=== PATIENT | male | born 2005 | race Caucasian/White ===

== ENCOUNTER 2024-01-03 06:51 | Emergency (ER) | payer OTHER, SELFPAY ==
[2024-01-03 06:59] VITALS: BP 129/71; PULSE 61; TEMP 36.7; O2SAT 97; BMI 24.4
[2024-01-03] MEDS: IPRATROPIUM/ALBUTEROL SULFATE 3 ML AMPUL.NEB IH (07:36)
[2024-01-03 07:37] VITALS: PULSE 72; O2SAT 97
--- NOTE | 2024-01-03 07:50 | ED.GENADUL1 ---
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, he is denying any chest pain nausea vomiting or any other complaints Mentioned that he have cough sometimes when he gets home and usually is associated shortness of breath there was no fever and sometimes the cough is productive The patient mentioned that he knows that there is some mold at work and may be that causing him to have cough although the cough is happening whenever he is getting home not at work The patient denies any fever chills abdominal pain Patient complaining of bilateral knee pain because of standing up for long time at work Related Data Previous Rx's ?Medication ?Instructions ?Recorded albuterol sulfate 90 mcg/actuation 1 inh inhalation Q6H PRN shortness 01/03/24 breath activated powder inhaler of breath #1 ea Allergies Allergy/AdvReac Type Severity Reaction Status Date / Time No Known Drug Allergies Allergy Verified 01/03/24 06:59 Opioid HPI Opioid Management Most Recent Opioid Data: No Data to Display Review of Systems ROS Status of ROS 10 or more systems reviewed and unremarkable except as noted in history and below Exam Narrative Exam Narrative: Nurses notes and vital signs reviewed and patient is not hypoxic. General: Well-appearing and in no apparent distress. Skin: Warm, dry, no pallor noted. No rash. Head: Normocephalic, atraumatic. Neck: Supple, non-tender. Eye: Pupils are equal, round and EOMI. No scleral icterus. Ears, Nose, Mouth, and Throat: TM are clear, no nasal mucosal hypertrophy. Oral mucosa is moist, no posterior oropharynx erythema, uvula is mid-line Cardiovascular: Regular Rate and Rhythm without murmur, gallop or rub. Respiratory: No accessory muscle use or respiratory distress. Lungs are clear distant breathing sound bilaterally,, no wheezing, rales or rhonchi Chest Wall: no tenderness Back: No midline thoracic or lumbar vertebral tenderness. No CVA tenderness Musculoskeletal: normal ROM, no calf or popliteal tenderness, no lower extremity edema/swelling GI: Abdomen is soft, non-distended. Normal bowel sounds. No masses appreciated. No tenderness to palpation. No rebound, guarding, or rigidity noted. Neurological: A&O x4. No cranial nerve dysfunction observed. No truncal ataxia. Moves all extremities. Sensation intact. Psychiatric: Cooperative and interactive. Normal mood and affect. Constitutional Vital Signs, click to edit/add: Last Vital Signs Temp 98.0 F 01/03/24 06:59 Pulse 72 01/03/24 07:37 Resp 16 01/03/24 07:37 BP 129/71 01/03/24 06:59 Pulse Ox 97 01/03/24 07:37 O2 Del Method Room Air 01/03/24 07:37 Course Vital Signs Vital signs: Vital Signs Temperature 98.0 F 01/03/24 06:59 Pulse Rate 61 01/03/24 06:59 Respiratory Rate 18 01/03/24 06:59 Blood Pressure 129/71 01/03/24 06:59 Pulse Oximetry 97 01/03/24 06:59 Oxygen Delivery Method Room Air 01/03/24 06:59 Temperature 98.0 F 01/03/24 06:59 Pulse Rate 72 01/03/24 07:37 Respiratory Rate 16 01/03/24 07:37 Blood Pressure 129/71 01/03/24 06:59 Pulse Oximetry 97 01/03/24 07:37 Oxygen Delivery Method Room Air 01/03/24 07:37 Medical Decision Making MDM Narrative Medical decision making narrative: The patient complained of coughing when exposed to mold could be secondary to reactive airway although the patient's symptoms are nonspecific and he is not a good historian I did provide him with a breathing treatment after which she was feeling much better I provided him with the albuterol as a reactive airway management treatment and instructed him to follow-up with a primary care that he was assigned The patient also mentioned that he have difficulty sleeping I did explain to him sleep hygiene and the fact that he can try [id number] melatonin The patient initially was advised that we can take an x-ray but he was worried about the cost of that and due to the fact that he does not have any pneumonia symptoms of fever chills or difficulty breathing at the moment I did tell him that we can avoid that by just supportive care because of hyperactive bronchitis only The patient is to follow up with primary care physician in next 2-3 days or to return to the emergency department should any of the signs or symptoms worsen or new symptoms develop. The patient agrees with the following Diagnosis and Treatment plan and the patient will be discharged home. Discharge Plan Discharge Stand Alone Forms: Work/School Release, Portal Instructions Chief Complaint: Shortness of Breath/Dyspnea Clinical Impression: Mild reactive airways disease Qualifiers: Asthma persistence: intermittent Asthma complication type: uncomplicated Qualified Code(s): J45.20 - Mild intermittent asthma, uncomplicated Patient Disposition: Home, Self-Care Time of Disposition Decision: 07:27 Condition: Good Prescriptions / Home Meds: New albuterol sulfate 90 mcg/actuation aerosol powdr breath activated 1 inh inhalation Q6H PRN (Reason: shortness of breath) Qty: 1 0RF Print Language: Indonesian Instructions: Reactive Airways Disease (ED), Insomnia (ED) Referrals: Physician,Non-Staff, MD [Primary Care Provider] - 1 week
== END 2024-01-03 07:58 | disposition home or self-care (01) ==
PROVIDERS: Emergency Provider Emergency Medicine
DX: J45.20 Mild intermittent asthma, uncomplicated (principal)
CPT/HCPCS: 94640; 99283

== ENCOUNTER 2025-01-17 03:20 | Emergency (ER) | payer OTHER, SELFPAY ==
--- OUTSIDE RECORDS SUMMARY | 2025-01-17 05:31 | XMS_ITS | Clinical Summary ---
Author Organization [facility] Healthcare Address [address] [place] [address] Care Team Providers Care Stripper Preliminary Name Role Phone Unallocated, Noms Provider Primary Care Provi narcisa Social History Tobacco Use Types Packs/Day Years Used Date Smoking Tobacco: Never Assessed Sex and Gender Information Value Date Recorded Sex Assigned at Not on file Legal Sex Male 9:59 AM EST Gender Identity Not on file Sexual Orientation Not on file Plan of Treatment Health Maintenance Due Date Last Done Comments Influenza Vaccine (#1) 2025 Care Teams Stripper Preliminary Relationship Specialty Start Date End Date Unallocated, Noms ProviderMD [facility] [address] [place] [id number] PCP - General Family Medicine 06/09/23
--- OUTSIDE RECORDS SUMMARY | 2025-01-17 05:31 | XMS_ITS | CCD ---
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 [facility] Care Team Providers Care General Repairer Name Role Phone Unallocated, Noms Provider Primary Care Provider Problems Problem Classification Problem Date Documented Da te Episodic/Chronic Administrative/social admission (2 sources) Patient encounter status; Translations: [Encounter for pre-employment examination] 06-15-2023 Episodic Encounters Encounter Date Encounter Type Care Provider Facility Start: 06-09-2023 End: 06-09-2023 ambulatory Not Available Start: 06-09-2023 End: 06-09-2023 Patient encounter procedure Vincent Vincent Kaylawallace DO Work Phone: [facility] Comment on above: Encounter for pre-em ployment drug testing (Primary Dx) Social History Date Type Detail Facility Tobacco smoking stat [facility] Tobacco smoking consumption unknown [facility] Healthcare Start: 2003 Sex Assigned At Not on file [facility] Gender identity Not on file [facility] History of Present illness Narrative 06-09-2023 Jerel Willis MA - 06/09/2023 9:55 AM EST Note Date & Type Note Facility 06-09-2023 History of Presen t illness Narrative Pt presents today for a pre-employment drug screen, BAT, and Physical Exam for [place]face. Pt verified by photo ID . documented in this encounter [facility] Evaluation note Note Date & Type Note Facility Evaluation note Diagnosis Encounter for pre-employment drug testing- Primary documented in this encounter [facility] Summary Purpose Family History No Family History Records Found Advance Directives No Advanced Directives Records Found Additional Source Comments (unrecognized sect ion and content) No Status Records Found INFORMATION SOURCE (unrecogn ized section and content) DATE CREATED AUTHOR 06/10/2023 [facility] Care Teams (unrecognized sec tion and content) General Repairer Relationship Specialty Start Date End Date Unallocated, Noms Provider [address] [place] [id number] PCP - General Family Medicine 06/09/23 FOR RECORDS PERTAINING TO PATIENTS WHO ARE OR HAVE BEEN ENROLLED IN A CHEMICAL DEPENDENCY/SUBSTANCEABUSE PROGRAM, SOME INFORMATION MAY BE OMITTED. This clinical summary was aggregated from multiple sources. Caution should be exercised in using it in the provision of clinical care. This summary normalizes information from multiple sources, and as a consequence, information in this document may materially change the coding, format and clinical context of patient data. In addition, data may be omitted in some cases. CLINICAL DECISIONS SHOULD BE BASED ON THE PRIMARY CLINICAL RECORDS. [facility] [employer] provides no warranty or guarantee of the accuracy or completeness of information in this document.
[2025-01-17 05:41] LABS: Hematocrit 41.0 % (42.0-54.0); Hemoglobin 14.3 g/dL (14.0-18.0); Immature Granulocytes Abs Auto 0.04 10^3/uL (0.00-0.03); Immature Granulocytes Pct Auto 0.4 % (0.0-0.5); Lymphocytes Absolute Auto 3.3 10^3/uL (1.2-3.8); Mean Corpuscular HGB Conc 34.9 g/dL (29.9-35.2); Mean Corpuscular Hemoglobin 31.1 pg (25.9-34.0); Mean Corpuscular Volume 89.1 fL (80.0-94.0); Platelet Count 245 10^3/uL (150-450); Red Blood Count 4.60 10^6/uL (4.70-6.10); White Blood Count 9.8 10^3/uL (4.0-11.0)
[2025-01-17 05:44] LABS: Anion Gap 16.1; Blood Urea Nitrogen 16.0 mg/dL (7.0-18.0); Calcium 9.2 mg/dL (8.5-10.1); Carbon Dioxide 23.8 mmol/L (21.0-32.0); Chloride 105 mmol/L (98-107); Estimated GFR (African America >60 (>=60 mL/min/1.73m^2); Estimated GFR (Non-African Ame >60 (>=60 mL/min/1.73m^2); Glucose 102 mg/dL (74-106); Potassium 3.9 mmol/L (3.5-5.1); Sodium 141 mmol/L (136-145)
== END 2025-01-17 06:30 | disposition home or self-care (01) ==
PROVIDERS: Emergency Provider Internal Medicine
DX: S39.012A Strain of muscle, fascia and tendon of lower back, initial encounter (principal); K52.9 Noninfective gastroenteritis and colitis, unspecified; I88.0 Nonspecific mesenteric lymphadenitis; X58.XXXA Exposure to other specified factors, initial encounter
CPT/HCPCS: 36415; 74176; 80048; 85025; 96374; 96375; 99284; J1885; J2360; J2919

== ENCOUNTER 2025-01-24 22:56 | Emergency (ER) | payer OTHER, SELFPAY ==
[2025-01-24] VITALS (7 sets, daily range): BP systolic 104–133; BP diastolic 68–86; PULSE 108; TEMP 36.8; O2SAT 88–99; BMI 25.1
--- OUTSIDE RECORDS SUMMARY | 2025-01-24 23:03 | XMS_ITS | CCD ---
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 [facility] Care Team Providers Care Land Inspector Name Role Phone Unallocated, Noms Provider Primary Care Provider Problems Problem Classification Problem Date Documented Da te Episodic/Chronic Administrative/social admission (2 sources) Patient encounter status; Translations: [Encounter for pre-employment examination] 06-15-2023 Episodic Encounters Encounter Date Encounter Type Care Provider Facility Start: 06-09-2023 End: 06-09-2023 ambulatory Not Available Start: 06-09-2023 End: 06-09-2023 Patient encounter procedure Vincent Vincent Kaylawallace DO Work Phone: [facility] Comment on above: Encounter for pre-em ployment drug testing (Primary Dx) Social History Date Type Detail Facility Tobacco smoking stat [facility] Tobacco smoking consumption unknown [facility] Healthcare Start: 2003 Sex Assigned At Not on file [facility] Gender identity Not on file [facility] History of Present illness Narrative 06-09-2023 Jerel Willis MA - 06/09/2023 9:55 AM EST Note Date & Type Note Facility 06-09-2023 History of Presen t illness Narrative Pt presents today for a pre-employment drug screen, BAT, and Physical Exam for [place]. Pt verified by photo ID . documented [...] section and content) DATE CREATED AUTHOR 06/10/2023 [facility] Care Teams (unrecognized sec tion and content) Land Inspector Relationship Specialty Start Date End Date Unallocated, Noms Provider [address] [place] [id number] PCP - General Family Medicine 06/09/23 FOR [...] BE BASED ON THE PRIMARY CLINICAL RECORDS. [facility] [employer] provides no warranty or guarantee of the accuracy or completeness of information in this document.
--- NOTE | 2025-01-24 23:10 | PC.NURSE ---
Awake though drowsy. Patient able to answer questions though is slow to respond. Respirations even and non labored. Patient admits to drinking alcohol and consuming 100 mg edible marijuana.
[2025-01-25] VITALS: BP 129/68
[2025-01-25 00:01] VITALS: O2SAT 100
--- NOTE | 2025-01-25 02:05 | ED.GENADUL1 ---
HPI HPI - General Adult General Chief complaint: Altered Mental Status Stated complaint: Genaro Estevez TOOK 100MG THC Time Seen by Provider: 01/24/25 23:02 Source: friend Mode of arrival: walk-in History of Present Illness HPI narrative: Patient is a healthy 19-year-old male with no chronic medical conditions presenting to the emergency department with his girlfriend and friend for concerns of marijuana intoxication. 1 hour ago the patient had a 100 mg marijuana edible, which was purchased at a authorize dispensary. Since the ingestion, the patient has been somnolent, friends were concerned so they called EMS. On arrival to the ED, patient clinically appears to be intoxicated marijuana. He is easily arousable. He is oriented x 3. He he denies any current symptoms. He denies any chest pain, shortness of breath, nausea, vomiting, abdominal pain, or any other symptoms. He denies any other coingestions. Related Data Home Medications ?Medication ?Instructions ?Recorded ?Confirmed No Known Home Medications 01/24/25 01/24/25 Allergies Allergy/AdvReac Type Severity Reaction Status Date / Time No Known Drug Allergies Allergy Verified 01/24/25 23:03 Review of Systems ROS Status of ROS 10 or more systems reviewed and unremarkable except as noted in history and below PFSH PFSH Social History Little interest or pleasure in doing things: not at all Feeling down, depressed, or hopeless: not at all Exam Narrative Exam Narrative: CONSTITUTIONAL: Somnolent, falls asleep during my exam, easily arousable to verbal stimuli, answering questions and following commands appropriately SKIN: Was warm and dry. EYES: Sclerae white. PERRLA, 5 mm EARS, NOSE, THROAT: Moist oral mucosa. RESPIRATORY: Clear to auscultation bilaterally, no wheezes, crackles, or stridor, no use of accessory muscles CARDIOVASCULAR: Normal rate and regular rhythm. There is no S3, S4, murmur, rub. GASTROINTESTINAL: Abdomen is nondistended. MUSCULOSKELETAL: No peripheral edema. NEUROLOGIC: Patient is awake and alert. Facies were symmetrical. Constitutional Vital Signs, click to edit/add: Last Vital Signs Temp 98.3 F 01/24/25 23:04 Pulse 108 H 01/24/25 23:04 Resp 20 01/24/25 23:04 BP 129/68 01/25/25 00:00 Pulse Ox 100 01/25/25 00:01 O2 Del Method Room Air 01/24/25 23:04 Course Vital Signs Vital signs: Vital Signs Pulse Oximetry 97 01/24/25 22:59 Temperature 98.3 F 01/24/25 23:04 Pulse Rate 108 H 01/24/25 23:04 Respiratory Rate 20 01/24/25 23:04 Blood Pressure 129/68 01/25/25 00:00 Pulse Oximetry 100 01/25/25 00:01 Oxygen Delivery Method Room Air 01/24/25 23:04 Medical Decision Making MDM Narrative Medical decision making narrative: Patient is a 19-year-old male presenting to the emergency department with his girlfriend and friend for concerns of marijuana intoxication after ingesting a 100 mg marijuana gummy 1 hour prior to arrival. His vital signs are significant for mild tachycardia, likely secondary to marijuana intoxication. He is otherwise afebrile and hemodynamically stable. He has an unremarkable physical examination. POC glucose was within normal limits. Patient's presentation is consistent with marijuana intoxication. He was monitored in the emergency department for about an hour with no significant change in his clinical status. He is conversational and ambulatory. I do believe he is stable for discharge. He has a safe ride home with his girlfriend, who is currently sober. Return precautions are given including any new or concerning symptoms. Patient and his friends understand and agree to the plan. FINAL IMPRESSION: #Acute marijuana intoxication DISPOSITION: Discharged home CONDITION: Good Lab Data Lab results reviewed: Yes I reviewed the patient's lab results Labs: Lab Results 01/24/25 Range/Units 23:01 POC Glucose 147 H (74-106) mg/dL Discharge Plan Discharge Chief Complaint: Altered Mental Status Clinical Impression: Marijuana intoxication Patient Disposition: Home, Self-Care Time of Disposition Decision: 00:18 Condition: Good Mode of Transportation: Private Vehicle Prescriptions / Home Meds: No Action No Known Home Medications Print Language: Azerbaijani Instructions: Medicinal Use of Cannabis (ED) Referrals: Physician,Non-Staff, [Primary Care Provider] - 1 week Discharge Date/Time: 01/25/25 00:37
== END 2025-01-25 00:37 | disposition home or self-care (01) ==
PROVIDERS: Emergency Provider Student in an Organized Health Care Education/Training Program
DX: F12.929 Cannabis use, unspecified with intoxication, unspecified (principal)
CPT/HCPCS: 36415; 99282